=== PATIENT | male | born 1990 | race Two or more races ===

== ENCOUNTER 2019-09-03 14:06 | Inpatient (IN) | payer MEDICAID ==
[~2019-09-03] VITALS: Ht 175.3 cm; Wt 57.3 kg
[~2019-09-03 14:06] MED LIST: CHOL20007 PO; DOCU-94 PO; FERR-20 PO
[2019-09-03 15:06] LABS: Basophils # (auto) 0 uL; Basophils % (auto) 0.2 % (0.0-2.0); Eosinophils # (auto) 0.1 uL; Hemoglobin 10.6 g/dL (13.5-17.5); Mean Corpuscular Hgb Conc. 31.5 g/dL (32.0-36.0); Monocytes # (auto) 0.6 uL
[2019-09-03 15:08] LABS: Eosinophils % (auto) 0.9 % (0.0-7.0); Hematocrit 33.8 % (41.0-53.0); Lymphocytes # (auto) 1.2 uL; Lymphocytes % (auto) 11.9 % (10.0-50.0); Mean Corpuscular Hemoglobin 21.2 pg (28.0-32.0); Mean Corpuscular Volume 67.3 fL (80.0-100.0); Monocytes % (auto) 5.6 % (0.0-12.0); Neutrophils # (auto) 8.5 uL; Neutrophils % (auto) 81.4 % (37.0-80.0); Platelet Count (auto) 466 10^3/uL (140-450); Red Blood Cells 5.02 10^6/uL (4.5-5.90); Red Cell Distribution Width 17.2 % (11.8-14.3); White Blood Cell 10.5 10^3/uL (4.4-10.8)
[2019-09-03 15:20] LABS: Albumin 2.9 g/dL (3.4-5.0); BUN/Creatinine Ratio 12.5; Calcium 8.5 mg/dL (8.5-10.1); Potassium 4.6 mmol/L (3.5-5.1)
[2019-09-03 15:23] LABS: Bilirubin, Total 0.3 mg/dL (0.2-1.0); Total Protein 9.3 g/dL (6.4-8.2)
[2019-09-03 15:30] LABS: INR 1.19 (0.9-1.15); Partial Thromboplastin Time 31.7 sec (23.64-32.05)
[2019-09-03] MEDS ORDERED: ONDANSETRON HCL 4 MG/2 ML VIAL IV ONE (16:15)
[2019-09-03] MEDS ORDERED: MORPHINE SULFATE 4 MG/ML SYR/VIAL IV ONE (16:15)
[2019-09-03] MEDS ORDERED: SODIUM CHLORIDE 0.9% 1,000 ML IV ONE ×2 (16:16)
[2019-09-03] MEDS ORDERED: metroNIDAZOLE 500MG/100ML 100 ML IV ONE (17:15)
[2019-09-03] MEDS ORDERED: cefTRIAXone 1GM/50ML D5W 50 ML IV ONE ×2 (17:15→18:15)
[2019-09-03] MEDS ORDERED: ACETAMINOPHEN 500 MG TAB PO PRN (18:15)
[2019-09-03] MEDS ORDERED: LACTULOSE 20Gm/30ML SOLN PO PRN (18:15)
[2019-09-03] MEDS ORDERED: MORPHINE SULF INJ 2 MG/ML SYRINGE 1ML IV PRN (18:15)
[2019-09-03] MEDS ORDERED: NITROGLYCERIN 0.4 MG SL TAB SL PRN (18:15)
[2019-09-03] MEDS ORDERED: traMADol HCL 50 MG TAB PO PRN (18:15)
[2019-09-03] MEDS ORDERED: TEMAZEPAM 15 MG CAP PO PRN (18:15)
[2019-09-03] MEDS ORDERED: PROMETHAZINE HCL 25 MG/ML 1ML IV PRN (18:15)
[2019-09-03] MEDS ORDERED: methylPREDNISolone SOD SUCC 125 MG/2 ML VL IV ONE (18:45)
[2019-09-03] MEDS: SODIUM CHLORIDE 0.9% 1,000 ML IV SCH (18:45)
--- NOTE | 2019-09-03 20:01 | NUR ---
Telemetry admit from [facility] admitted to Telemetry unit after SBAR received. Patient oriented to CARL LEWIS, RN primary RN, [facility] unit, room 273, bed A, and unit policies regarding patient care and visiting hours. Patient now on continuous telemetry monitoring, tele box #82 and telemetry reading on arrival to unit is Sinus Bradycardia @ 50. Patient weighed by bed scale and encouraged to call if they need something. All questions and concerns addressed, patient verbalized understanding. Note: Patient received Awake and alert. He denies abdominal pain and nausea and vomiting. Abdomen soft and non-distended. Bed in low position and call light in reach.
[2019-09-03] MEDS: FAMOTIDINE 20 MG TAB PO SCH (22:00)
[2019-09-03] MEDS ORDERED: ADAL10IN SC (22:43)
[2019-09-03] MEDS ORDERED: HYDR-4833 PO (22:43)
[2019-09-03] MEDS: metroNIDAZOLE 500MG/100ML 100 ML IV SCH (22:56)
[2019-09-03 23:23] VITALS: BP 94/59
[2019-09-03] MEDS: methylPREDNISolone SOD SUCC 40 MG/ML VL IV SCH (23:47)
[2019-09-03] MEDS: HYDROcodone-ACET 10/325MG TAB PO PRN (23:48)
[2019-09-04 01:21] LABS: Hematocrit 28.4 % (41.0-53.0)
[2019-09-04] MEDS: SODIUM CHLORIDE 0.9% 1,000 ML IV SCH ×2 (02:15→11:49)
[2019-09-04 05:07] VITALS: BP 109/73
[2019-09-04 05:40] LABS: Basophils # (auto) 0 uL; Eosinophils # (auto) 0 uL; Hemoglobin 9.3 g/dL (13.5-17.5); Lymphocytes # (auto) 0.6 uL; Mean Corpuscular Volume 67.6 fL (80.0-100.0); Monocytes # (auto) 0 uL; White Blood Cell 5.5 10^3/uL (4.4-10.8)
[2019-09-04 05:45] LABS: Hematocrit 29.5 % (41.0-53.0); Mean Corpuscular Hemoglobin 21.4 pg (28.0-32.0); Mean Corpuscular Hgb Conc. 31.7 g/dL (32.0-36.0); Monocytes % (auto) 0.7 % (0.0-12.0); Neutrophils # (auto) 4.8 uL; Neutrophils % (auto) 88.3 % (37.0-80.0); Platelet Count (auto) 360 10^3/uL (140-450); Red Blood Cells 4.36 10^6/uL (4.5-5.90); Red Cell Distribution Width 17.2 % (11.8-14.3)
[2019-09-04] MEDS: methylPREDNISolone SOD SUCC 40 MG/ML VL IV SCH ×2 (06:29→14:33)
[2019-09-04] MEDS: metroNIDAZOLE 500MG/100ML 100 ML IV SCH ×2 (06:29→15:16)
--- NOTE | 2019-09-04 06:55 | NUR ---
Closing Note: Patient up to bathroom. No distress noted. No change in status.
[2019-09-04] MEDS: HYDROcodone-ACET 10/325MG TAB PO PRN ×2 (07:09→15:59)
[2019-09-04 08:30] VITALS: BP 102/57
[2019-09-04] MEDS ORDERED: cefTRIAXone 1GM/50ML D5W 50 ML IV SCH (09:00)
[2019-09-04] MEDS: FAMOTIDINE 20 MG TAB PO SCH (10:06)
[2019-09-04 12:02] LABS: Hematocrit 28.9 % (41.0-53.0)
[2019-09-04 12:30] VITALS: BP 96/46
--- NOTE | 2019-09-04 17:45 | NUR ---
Discharge instructions given as ordered. Encourage to follow up with PMD as instructed. All questions and concerns addressed. Patient verbalized understanding. Medication reconciliation form completed and copy given to patient.IV removed with catheter intact, pressure dressing applied. Telemetry unit returned to ICU. Patient taken to vehicle via wheelchair with all personal belongings, accompanied by staff and family member. No distress noted at time of departure.
== END 2019-09-04 17:45 | disposition home or self-care (01) | DRG 245 ==
LOC: ER 14:06 → TELE 14:07 → TELE-WESTW 19:58
PROVIDERS: ADMIT Internal Medicine; ATTEND Internal Medicine
DX: K51.911 Ulcerative colitis, unspecified with rectal bleeding (principal); E44.0 Moderate protein-calorie malnutrition; D64.9 Anemia, unspecified; Z83.3 Family history of diabetes mellitus; Z68.1 Body mass index [BMI] 19.9 or less, adult
CPT/HCPCS: 36415; 74176; 80053; 83605; 85014; 85018; 85025; 85045; 85610; 85652; 85730; 86850; 86900; 86901; 87040; 96361; 96374; 96375; 99291; G0378; J0696; J2405; J3490